=== PATIENT | female | born 1990 | race American Indian/Alaskan Native ===

== ENCOUNTER 2020-01-24 18:11 | Emergency (ER) | payer OTHER ==
[2020-01-24 18:21] VITALS: BP 128/68
--- NOTE | 2020-01-24 18:26 | Emergency Department Report ---
ED Fever HPI - General Chief Complaint: Fever Stated Complaint: FEVER/SOB/PAIN Time Seen by Provider: 01/24/20 18:19 Source: patient Exam Limitations: no limitations - History of Present Illness Initial Comments: Haydee is a 29 yo female without significant medical hx who presents with fever sore throat body aches fatigue for several days. No cough. NO sick contacts no travel has been home from work for 2-3 weeks. Concerned for coronavirus infection because she has been out in the public several times, local retail centers. lives with and 2 children Timing/Duration: other (several days) Fever Severity/Quality: subjective Associated Symptoms: nausea/vomiting, sore throat, other (fatigue) ED Review of Systems ROS: Stated complaint: FEVER/SOB/PAIN Other details as noted in HPI Constitutional: fever, malaise ENT: throat pain Respiratory: denies: cough, shortness of breath Gastrointestinal: nausea ED Past Medical Hx - Past Medical History Previous Medical History?: No - Surgical History Past Surgical History?: No - Social History Smoking Status: Never Smoker Substance Use Type: None - Medications Home Medications: Home Medications Medication Instructions Recorded Confirmed Last Taken Type Amoxicillin [Trimox CAP] 2 tab PO BID 10 Days #40 capsule 01/24/20 Unknown Rx ED Physical Exam - General Limitations: No Limitations General appearance: alert, in no apparent distress - Head Head exam: Present: atraumatic, normocephalic - Eye Eye exam: Present: normal appearance - ENT ENT exam: Present: other (erythematous mildy edematous tonsils) - Neck Neck exam: Present: normal inspection - Respiratory Respiratory exam: Present: normal lung sounds bilaterally. Absent: respiratory distress, wheezes, rales, rhonchi - Cardiovascular Cardiovascular Exam: Present: regular rate, normal rhythm, normal heart sounds. Absent: systolic murmur, diastolic murmur, rubs, gallop - GI/Abdominal GI/Abdominal exam: Present: soft, normal bowel sounds. Absent: distended, tenderness, guarding, rebound - Extremities Exam Extremities exam: Present: normal inspection - Neurological Exam Neurological exam: Present: alert, oriented X3 - Psychiatric Psychiatric exam: Present: normal affect, normal mood - Skin Skin exam: Present: warm, dry, intact, normal color. Absent: rash ED Course Vital Signs 01/24/20 18:18 Temperature 101.0 F H Pulse Rate 98 H Respiratory 20 Rate Blood Pressure 128/68 O2 Sat by Pulse 99 Oximetry ED Medical Decision Making - Medical Decision Making Fever sore throat body aches flu like illness without cough shortness of breath travel or known COVID 19 exposure rx: amoxicillin for acute pharyngitis given information about self isolation and symptoms of COVID 19 infection Critical care attestation.: If time is entered above; I have spent that time in minutes in the direct care of this critically ill patient, excluding procedure time. ED Disposition Clinical Impression: Acute pharyngitis Disposition: DC- TO HOME OR SELFCARE Is pt being admited?: No Does the pt Need Aspirin: No Condition: Stable Instructions: Pharyngitis (ED) Prescriptions: Amoxicillin [Trimox CAP] 2 tab PO BID 10 Days #40 capsule
== END 2020-01-24 19:00 | disposition home or self-care (01) ==
LOC: ED 18:11
DX: J02.9 Acute pharyngitis, unspecified (principal); R11.2 Nausea with vomiting, unspecified
CPT/HCPCS: 99281